=== PATIENT | male | born 1955 | race Caucasian/White ===

== ENCOUNTER 2022-08-04 09:27 | Outpatient (CLI) | payer MEDICARE, SELFPAY ==
[2022-08-04 11:46] LABS: Albumin* 4.4 g/dL (3.3-5.0); Chloride* 105 mmol/L (96-114)
[2022-08-04 11:47] LABS: Potassium* 4.4 mmol/L (3.6-5.1); Sodium* 140 mmol/L (135-149)
[2022-08-04 11:49] LABS: Alkaline Phosphatase* 82 U/L (40-150); Aspartate Amino Transferase* 43 U/L (12-35); Bilirubin Total* 0.7 mg/dL (0.1-1.5); Blood Urea Nitrogen* 19 mg/dL (7-30); Carbon Dioxide* 21 mmol/L (20-32); Cholesterol* 185 mg/dL (90-199); Creatinine* 0.7 mg/dL (0.5-1.5); Estimated Glomerular Filt Rate 101 ml/min; Glucose* 90 mg/dL (60-115); Total Protein* 7.8 g/dL (6.0-8.3); Triglycerides* 159 mg/dL (40-149)
[2022-08-04 11:50] LABS: Alanine Aminotransferase* 29 U/L (4-50); Calcium* 8.8 mg/dL (8.4-10.6); HDL Cholesterol* 51 mg/dL (>=40); LDL Cholesterol Calculated 102 mg/dL (<100)
[2022-08-04 15:55] LABS: Gamma Glutamyl Transpeptidase* 47 U/L (8-55)
[2022-08-04 16:45] LABS: Vitamin B12* 365 pg/mL (243-894)
[2022-08-06 03:12] LABS: Folate, Serum 7.8 ng/mL (>=5.9)
== END 2022-08-04 09:28 | disposition home or self-care (01) ==
PROVIDERS: PCP Family Medicine; Visit Provider Family Medicine
DX: Z00.00 Encounter for general adult medical examination without abnormal findings (principal); E03.9 Hypothyroidism, unspecified; I10 Essential (primary) hypertension; E78.5 Hyperlipidemia, unspecified; F10.10 Alcohol abuse, uncomplicated; D75.89 Other specified diseases of blood and blood-forming organs
CPT/HCPCS: 80053; 80061; 82607; 82746; 82977; 84443

== ENCOUNTER 2023-11-25 08:15 | Outpatient (CLI) | payer MEDICARE, SELFPAY | END 2023-11-25 08:16 | disposition home or self-care (01) | LOC: NFLDREF 11-28 15:34 | PROVIDERS: PCP Family Medicine; Referring Provider Family Medicine; Visit Provider Family Medicine | DX: E03.9 Hypothyroidism, unspecified (principal); I10 Essential (primary) hypertension; E78.5 Hyperlipidemia, unspecified; Z12.5 Encounter for screening for malignant neoplasm of prostate | CPT/HCPCS: 80053; 80061; 84153; 84443; G0103 ==

== ENCOUNTER 2023-12-13 07:38 | Outpatient (CLI) | payer MEDICARE, OTHER, SELFPAY ==
--- NOTE | 2023-12-13 08:57 | W.ANESCHARGE ---
Anesthesia Charges Start Date/Time Anesthesia Start Date: 12/13/23 Anesthesia Start Time: 08:22 Stop Date/Time Anesthesia Stop Date: 12/13/23 Anesthesia Stop Time: 08:56
--- NOTE | 2023-12-13 09:43 | W.ANESCHARGE ---
Anesthesia Charges Start Date/Time Anesthesia Start Date: 12/13/23 Anesthesia Start Time: 08:22 Stop Date/Time Anesthesia Stop Date: 12/13/23 Anesthesia Stop Time: 08:56
== END 2023-12-13 07:39 | disposition home or self-care (01) ==
LOC: OP CLINIC 07:41
PROVIDERS: PCP Family Medicine; Visit Provider Surgery
DX: K63.5 Polyp of colon (principal); K64.8 Other hemorrhoids; K57.30 Diverticulosis of large intestine without perforation or abscess without bleeding; Z86.010 Personal history of colon polyps
CPT/HCPCS: 00811; 45385; 88305; J2704

== ENCOUNTER 2024-01-03 08:45 | Outpatient (CLI) | payer MEDICARE, SELFPAY ==
--- NOTE | 2024-01-03 09:00 | CRLHL7_ITS ---
For Patients: As a result of the Cures Act, medical imaging exams and procedure reports are released immediately into your electronic medical record. You may view this report before your referring provider. If you have questions, please contact your health care provider. ULTRASOUND ABDOMINAL AORTA 01/03/2024 CLINICAL HISTORY: Abdominal aortic aneurysm screening. COMPARISON: None. TECHNIQUE: The abdominal aorta and iliac arteries were examined with bolton-scale ultrasound, color flow and Doppler spectral analysis. Bypass grafts and stents may be evaluated per exam specific protocol. Vessel size, peak systolic velocity (PSV) and velocity ratios if applicable, were obtained and documented at sites per exam specific protocol. FINDINGS: Proximal Aorta: AP 2.8 cm. Width: 3.6 cm Mid Aorta: AP: 2.3 cm. Width: 2.2 cm Distal Aorta: AP 2.1 cm. Width: 2.2 cm Right AYDEN: AP 1.3 cm. Width: 1.3 cm Left AYDEN: AP 1.3 cm. Width: 1.2 cm Evaluation was limited due to excess bowel gas. This resulted in suboptimal positions of the proximal and mid abdominal aorta. The visualized proximal abdominal aorta is aneurysmal measuring up to 3.6 cm. IMPRESSION: Suboptimal evaluation due to bowel gas. Proximal abdominal aortic aneurysm measuring up to 3.6 cm. West Stafford M.D. [email or web address] Transcribed: 2:16 pm DW/Dictated by: West Stafford MD @ 01/03/2024 12:51:00 PM (Electronically Signed)
== END 2024-01-03 08:46 | disposition home or self-care (01) ==
LOC: US 08:46
PROVIDERS: PCP Family Medicine; Visit Provider Family Medicine
DX: Z13.6 Encounter for screening for cardiovascular disorders (principal); I71.40 Abdominal aortic aneurysm, without rupture, unspecified
CPT/HCPCS: 76706